=== PATIENT | male | born 1970 | race Caucasian/White ===

== ENCOUNTER 2016-06-05 16:25 | Emergency (ER) | payer OTHER ==
[~2016-06-05 16:25] MED LIST: AMOXICILLIN PO; AUGMENTIN PO; BACTRIM DS TABL1 TA1 PO; CIPRO PO; FLEXERIL PO; IBUPROFEN PO; IBUPROFEN100 MG PO; IBUPROFEN800 MG PO; KEFLEX500 M1 PO; LORTAB 5/500 TA1 TA1 PO; MEDROL DOSEPAK4 MG PO; MEDROL PO; NAPROSYN500 MG PO; NAPROXEN PO; NO MEDICATIONS; NORCO 5/325 TAB1 TAB PO; ORUDIS75 M1 DOB; TYLOX1 CAP 5/50 PO; VICODIN 5/1 TAB 5/50 PO; VICODIN 5/500 T1 TAB PO; VICODIN PO
== END 2016-06-05 17:00 | disposition home or self-care (01) ==
LOC: CFTX 16:25
DX: R05 Cough (principal)
CPT/HCPCS: 71020; 99282